=== PATIENT | male | born 1990 | race Caucasian/White ===

== ENCOUNTER 2020-07-15 03:44 | Emergency (ER) | payer SELFPAY ==
[~2020-07-15] VITALS: Ht 175.3 cm; Wt 65.9 kg
[2020-07-15 03:59] VITALS: TEMP 99
[2020-07-15] MEDS ORDERED: NORCO 325 MG-51 TAB PO (04:29)
[2020-07-15] MEDS ORDERED: AMOXICILLIN 50500 MG PO (04:29)
[2020-07-15 04:56] VITALS: BP 138/86; PULSE 89
[2020-07-15] MEDS ORDERED: CLEOCIN HC150 MG/CAP PO (18:24)
== END 2020-07-15 04:56 | disposition home or self-care (01) ==
LOC: COL.ER 03:44
DX: K02.9 Dental caries, unspecified (principal); F17.290 Nicotine dependence, other tobacco product, uncomplicated

== ENCOUNTER 2020-07-15 17:52 | Emergency (ER) | payer SELFPAY ==
[~2020-07-15] VITALS: Ht 175.3 cm; Wt 65.9 kg
[~2020-07-15 17:52] MED LIST: AMOXICILLIN 50500 MG PO; NORCO 325 MG-51 TAB PO
[2020-07-15 17:56] VITALS: TEMP 99.1
[2020-07-15] MEDS ORDERED: CLEOCIN HC150 MG/CAP PO (18:24)
[2020-07-15 18:37] VITALS: BP 150/89; PULSE 76
== END 2020-07-15 18:37 | disposition home or self-care (01) ==
LOC: COL.ER 17:52
DX: K04.7 Periapical abscess without sinus (principal); F17.210 Nicotine dependence, cigarettes, uncomplicated; Z79.2 Long term (current) use of antibiotics
CPT/HCPCS: J1885

== ENCOUNTER 2021-12-08 17:52 | Emergency (ER) | payer SELFPAY ==
[~2021-12-08 17:52] MED LIST changes: +CLEOCIN HC150 MG/CAP PO
== END 2021-12-08 18:15 | disposition left against medical advice (07) ==
LOC: COL.ER 17:52
DX: F19.10 Other psychoactive substance abuse, uncomplicated (principal)

== ENCOUNTER 2021-12-08 19:47 | Emergency (ER) | payer SELFPAY ==
[~2021-12-08] VITALS: Ht 175.3 cm; Wt 64.5 kg
[2021-12-08 19:57] VITALS: TEMP 98.3
[2021-12-08 21:21] LABS: BASO % 0.3 % (0.0-2.0); EOS # 0.1 K/mm3 (0.0-0.7); EOS % 0.5 % (0.0-4.0); GRAN # 8.6 K/mm3 (1.4-6.5); GRAN % 76.8 % (42.2-75.2); HEMATOCRIT 42.1 % (42.0-52.0); HEMOGLOBIN 13.8 g/dl (13.5-18.0); LYMPH # 1.8 K/mm3 (1.2-3.4); LYMPH % 15.8 % (20.0-51.0); MEAN CELL VOLUME 82 fl (80.0-100.0); MEAN CORPUSCULAR HEMOGLOBIN 27 pg (27-31); MEAN CORPUSCULAR HGB CONC 33 g/dl (33.0-37.0); MEAN PLATELET VOLUME 11.3 fl (7.4-10.4); MONO # 0.7 K/mm3 (0.1-0.6); MONO % 6.2 % (1.7-9.3); PLATELET COUNT 216 K/mm3 (130-400); RED BLOOD COUNT 5.12 M/mm3 (4.20-5.60); REDCELL DISTRIBUTION WIDTH-CV 13.6 % (11.5-14.5)
[2021-12-08 21:42] LABS: ALANINE AMINOTRANSFERASE 15 U/L (0-55); ALBUMIN 4.6 gm/dL (3.5-5.0); ALKALINE PHOSPHATASE 72 U/L (40-150); ANION GAP 11 mmol/L (7-16); AST,SGOT 21 U/L (5-34); BILIRUBIN,TOTAL 0.5 mg/dL (0.2-1.2); BLOOD UREA NITROGEN 8 mg/dL (9-21); CALCIUM 9.2 mg/dL (8.4-10.2); CARBON DIOXIDE 25 mmol/L (22-29); CHLORIDE 105 mmol/L (98-107); CREATININE, serum 0.84 mg/dL (0.72-1.25); GLUCOSE 107 mg/dL (70-99); POTASSIUM 3.8 mmol/L (3.5-4.5); SODIUM 141 mmol/L (136-145); TOTAL PROTEIN 7.6 gm/dL (6.2-8.1)
[2021-12-08 21:47] LABS: ACETAMINOPHEN < 1.0 ug/mL (10-30); ALCOHOL(ethanol),MEDICAL < 10 mg/dL (0-10); SALICYLATE < 5.0 mg/dL (15.0-30.0)
[2021-12-08 21:59] VITALS: BP 134/91; PULSE 89
== END 2021-12-08 22:01 | disposition home or self-care (01) ==
LOC: COL.ER 19:47
PROVIDERS: Physician Assistant
DX: F19.10 Other psychoactive substance abuse, uncomplicated (principal); F17.210 Nicotine dependence, cigarettes, uncomplicated

== ENCOUNTER 2021-12-09 21:10 | Emergency (ER) | payer SELFPAY ==
[~2021-12-09] VITALS: Ht 175.3 cm; Wt 63.6 kg
[2021-12-09 21:13] VITALS: BP 122/76; PULSE 117; TEMP 98.8
== END 2021-12-09 23:00 | disposition left against medical advice (07) ==
LOC: COL.ER 21:10
DX: S01.112A Laceration without foreign body of left eyelid and periocular area, initial encounter (principal); F17.210 Nicotine dependence, cigarettes, uncomplicated; W10.9XXA Fall (on) (from) unspecified stairs and steps, initial encounter; Y92.410 Unspecified street and highway as the place of occurrence of the external cause

== ENCOUNTER 2021-12-10 12:55 | Emergency (ER) | payer SELFPAY ==
[~2021-12-10] VITALS: Ht 22.9 cm; Wt 68.2 kg
[2021-12-10 15:40] LABS: BASO % 0.2 % (0.0-2.0); EOS # 0.1 K/mm3 (0.0-0.7); EOS % 0.7 % (0.0-4.0); GRAN # 6.5 K/mm3 (1.4-6.5); GRAN % 67.5 % (42.2-75.2); HEMATOCRIT 42.1 % (42.0-52.0); HEMOGLOBIN 13.8 g/dl (13.5-18.0); LYMPH # 2.3 K/mm3 (1.2-3.4); LYMPH % 24.3 % (20.0-51.0); MEAN CELL VOLUME 83 fl (80.0-100.0); MEAN CORPUSCULAR HEMOGLOBIN 27 pg (27-31); MEAN CORPUSCULAR HGB CONC 33 g/dl (33.0-37.0); MEAN PLATELET VOLUME 11.7 fl (7.4-10.4); MONO # 0.7 K/mm3 (0.1-0.6); MONO % 7.1 % (1.7-9.3); PLATELET COUNT 216 K/mm3 (130-400); RED BLOOD COUNT 5.09 M/mm3 (4.20-5.60); REDCELL DISTRIBUTION WIDTH-CV 13.8 % (11.5-14.5); TRICYCLIC ANTIDEPRESS URINE NEGATIVE
[2021-12-10 15:41] LABS: ACETAMINOPHEN < 1.0 ug/mL (10-30); ALANINE AMINOTRANSFERASE 16 U/L (0-55); ALBUMIN 4.4 gm/dL (3.5-5.0); ALCOHOL(ethanol),MEDICAL < 10 mg/dL (0-10); ALKALINE PHOSPHATASE 80 U/L (40-150); ANION GAP 11 mmol/L (7-16); AST,SGOT 21 U/L (5-34); BILIRUBIN,TOTAL 0.6 mg/dL (0.2-1.2); BLOOD UREA NITROGEN 9 mg/dL (9-21); CALCIUM 9.3 mg/dL (8.4-10.2); CARBON DIOXIDE 24 mmol/L (22-29); CHLORIDE 105 mmol/L (98-107); CREATININE, serum 0.78 mg/dL (0.72-1.25); GLUCOSE 107 mg/dL (70-99); POTASSIUM 3.7 mmol/L (3.5-4.5); SALICYLATE < 5.0 mg/dL (15.0-30.0); SODIUM 140 mmol/L (136-145); TOTAL PROTEIN 7.5 gm/dL (6.2-8.1)
[2021-12-10 15:59] LABS: COLLECTION METHOD CLEAN CATCH; MUCOUS Present (NOT PRESENT); PH 6 (5-8); SQUAMOUS EPITHELIAL None Seen /hpf (0-10); URINE APPEARANCE Hazy (CLEAR/HAZY); URINE BACTERIA None Seen /hpf (NONE SEEN); URINE BILIRUBIN Negative (NEGATIVE); URINE BLOOD Negative (NEGATIVE); URINE COLOR Yellow (YELLOW); URINE GLUCOSE Negative (NEGATIVE); URINE KETONE Trace (NEGATIVE); URINE LEUKOCYTE ESTERASE Negative (NEGATIVE); URINE NITRATE Negative (NEGATIVE); URINE PROTEIN(semi-quant) Negative (NEGATIVE); URINE RBC 0-2 /hpf (0-2)
[2021-12-11 09:00] VITALS: TEMP 97.9
[2021-12-11 14:03] VITALS: BP 115/54; PULSE 98
== END 2021-12-11 14:03 ==
LOC: COL.ER 12:55
PROVIDERS: Nurse Practitioner Primary Care
DX: R44.0 Auditory hallucinations (principal); F15.20 Other stimulant dependence, uncomplicated; S05.12XA Contusion of eyeball and orbital tissues, left eye, initial encounter; F17.200 Nicotine dependence, unspecified, uncomplicated; Z20.822 Contact with and (suspected) exposure to COVID-19; Y04.2XXA Assault by strike against or bumped into by another person, initial encounter; Y93.01 Activity, walking, marching and hiking

== ENCOUNTER → 2021-12-11 | Emergency (ER) | payer SELFPAY | LOC: COL.ER 14:57 | DX: R69 Illness, unspecified (principal) ==